=== PATIENT | female | born 1995 | race Caucasian/White ===

== ENCOUNTER → 2023-04-13 06:31 | Day surgery (SDC) | payer OTHER, SELFPAY | LOC: GI 06:31 | PROVIDERS: ATTENDING PHYSICIAN Internal Medicine Gastroenterology; FAMILY PHYSICIAN Emergency Medicine | DX: K62.5 Hemorrhage of anus and rectum (principal); R19.4 Change in bowel habit; K64.8 Other hemorrhoids | CPT/HCPCS: 45380; 88305 ==

== ENCOUNTER 2023-10-21 18:08 | Emergency (ER) | payer OTHER, SELFPAY ==
[2023-10-21 18:14] VITALS: BP 151/92
--- NOTE | 2023-10-21 19:03 | ED.GENMED ---
History of Present Illness
General
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
Source: patient
Exam Limitations: none
Time Seen by Provider: 10/21/23 18:25
History of Present Illness
History of Present Illness:
28-year-old female complaining of left flank pain that started yesterday. Some mild burning with urination. No frequency. No fever or chills. 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 Today about 2 to 3 hours prior to coming to the ER
she noticed a mass sticking out of her vagina. She was concerned it might be a prolapse. She has some vaginal bleeding. However her menses is close to being due. She denies .
Past History
Past History
ED Past Medical History: Other (Migraines)
ED Past Surgical History: Other (Nephrectomy)
Social History
Tobacco: Non-smoker
Alcohol: None
Drug: None
Personal: Single
Living: with family
Employment: Employed
Review of Systems
Review of Systems
All Other Systems: Not applicable
ABD/GI: Reports no symptoms
Phy Exam
Physical Exam
Physical Exam:
GENERAL: Alert and oriented in no apparent distress
EYE: Orbits normal.
NECK: Supple
CARDIAC: Regular rate and rhythm without any obvious murmurs.
LUNGS: Clear breath sounds,normal
ABDOMEN: Soft, without focal tenderness or distention
: Mild blood in the vaginal vault. No obvious masses. No obvious prolapse. Cervix is high visualized and appears normal. No abscess. No cervical motion tenderness. No masses palpated on manual exam.
NEUROLOGICAL: Alert and oriented , grossly non-focal
SKIN: Warm and dry
PSYCH: Normal and appropriate interaction.
Course
Orders/Labs/Results
Orders:
Orders
10/21/23 18:37
CT Abd/pel Without Iv Or Oral Urgent
Comment:
Reason For Exam: Left flank pain. 1 kidney
Test Result ONCE
10/21/23 18:38
IV Insert/Care/Rem.- Treatment PRN
10/21/23 18:46
0.9% Sodium Chloride 1000 ml [Nss] 1,000 ml IV BOLUS
US Pelvis Only (non-obstetric) Urgent
Comment:
Reason For Exam: Pelvic pain. Possible uterine prolapse
10/21/23 18:58
Complete Blood Count/With Diff Urgent
Comprehensive Metabolic Panel Urgent
HCG, Serum Qualitative Screen Urgent
Urinalysis Reflex To Culture Urgent
Date Specimen was Collected: 10/21/23
Time Specimen was Collected: 18:43
Urine Microscopic Reflex Cult Urgent
10/21/23 23:12
Chlamydia/GC by PCR Urgent
ROGERIO Source: Endo-Cervical
Specimen Description:
Source:: ENDOCERVICAL
Date Specimen was Collected: 10/21/23
Time Specimen was Collected: 23:14
10/21/23 23:22
CefTRIAXone [Rocephin] 500 mg IV NOW STA
Doxycycline [Vibramycin] 100 mg PO NOW STA
Abnormal Lab Results
10/21/23
18:58
MCH 31.6 H pg
(27.0-31.0)
Ur Occult Blood Reflex 3+ A
(Negative)
10/21/23 18:58
10/21/23 18:58
Vital Signs
Initial and Last Documented VS:
Initial Vital Signs
Temp Pulse Resp BP Pulse Ox
99.6 F 103 18 151/92 100
10/21/23 18:14 10/21/23 18:14 10/21/23 18:14 10/21/23 18:14 10/21/23 18:14
Last Documented Vital Signs
Temp Pulse Resp BP Pulse Ox
99.6 F 66 18 125/79 100
10/21/23 18:14 10/21/23 22:16 10/21/23 22:16 10/21/23 22:16 10/21/23 22:16
MDM/Problems Addressed
Differential Diagnosis Includes:
Patient's initial description of her vaginal issue sounded like a possible prolapse although clinically I cannot find 1. Anatomically her exam is unremarkable. We will get an ultrasound for completeness. As for the left flank pain she does have 1
kidney. Would want to rule out a obstructing stone. Workup in progress.
*Pulse Oximetry
Patient hypoxic: no
*Critical Care Note
Total Time (30-74mins, 75-104mins- exclusive of procedures): Not Applicable
Update Note
Update Note:
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 Likely vaginal cyst.. No obvious explanation for pain. No obvious infectious issue although with some cervical motion tenderness patient is covered with Rocephin and Doxy. Will follow-up with DEHYDRATION PLANT OPERATOR.
ED Attending Note
-
Portions of this chart may have been created with voice recognition software.� Occasional wrong word or��sound alike� substitutions may have occurred due to the inherent limitations of voice recognition software.
Discharge Plan
Departure
Patient Disposition: Home (Routine Discharge)
Date of Disposition: 10/21/23
Time of Disposition: 23:23
Patient with high blood pressure during this ER visit?: No
Discharge Problem:
Likely vaginal cyst, Dysuria/flank pain
Instructions: Dysuria, Adult (DC), Flank Pain (DC), BLOOD PRESSURE
Prescriptions:
New
doxycycline hyclate 100 mg capsule
100 mg PO BID 7 Days Qty: 14 0RF
No Action
pseudoephedrine HCl [Sudafed] 30 mg tablet
30 mg PO ONCE PRN (Reason: nasal congestion) Qty: 10 0RF
fluticasone propionate [Flonase Allergy Relief] 50 mcg/actuation spray,suspension
1 spray intranasal DAILY Qty: 16 0RF
Referrals:
Aixa Mi MD [Family Provider] -
Sylwia Jerome DO [Active] - Follow up in 5-7 days
Activity Restrictions/Additional Instructions:
Antibiotics as directed
Follow-up with the DEHYDRATION PLANT OPERATOR doctor
Return sooner with increased pain fever or any other concerning symptoms
Interventions
Interventions:
*Risk Screen - Suicide Last Done: 10/21/23 18:14
*General Assessment Last Done: 10/21/23 18:14
*Neglect/Abuse Screening Last Done: 10/21/23 18:14
ED-Female Genitourinary Assessment Last Done: 10/21/23 19:00
Discharge Date and Time
Print Language: LAO
[2023-10-21 19:07] LABS: % Basophils 0.4 % (0-2); % Eosinophils 0.9 % (0-6); % Immature Granulocytes 0.1 % (0-0.5); % Lymphocytes 44.2 % (20.5-51.1); % Monocytes 7.4 % (1.7-9.3); Absolute Eosinophils 0.1 10^3/uL (0-0.7); Absolute Lymphocytes 3.4 10^3/uL (1.2-3.4); Absolute Monocytes 0.6 10^3/uL (0.1-0.6); Absolute Neutrophils 3.7 10^3/uL (1.4-6.5); Hematocrit 40.6 % (37.0-47.0); Hemoglobin 13.6 g/dL (12.0-16.0); Mean Corp Hgb Conc. 33.5 g/dL (33.0-37.0); Mean Corpuscular Hgb 31.6 pg (27.0-31.0); Mean Corpuscular Volume 94.2 fL (81.0-99.0); Mean Platelet Volume 10.4 fL (7.4-10.4); Nucleated Red Blood Cells % 0 %; Platelet Count 235 10^3/uL (130-400); Red Blood Cell Count 4.31 10^6/uL (4.20-5.40); Red Cell Dist. Width 11.9 % (11.5-14.5); White Blood Cell Count 7.8 10^3/uL (4.8-10.8)
[2023-10-21 19:08] LABS: Urine Albumin Negative (Neg - Trace); Urine Bilirubin Negative (Negative); Urine Character Clear (Clear); Urine Color Yellow; Urine Glucose Negative (Negative); Urine Ketone Negative (Negative); Urine Leukocyte Negative (Negative); Urine Nitrite Negative (Negative); Urine Occult Blood 3+ (Negative); Urine Urobilinogen Negative (Neg - 1+)
[2023-10-21] MEDS: NSS 1000 IV (19:08)
[2023-10-21 19:20] LABS: Urine Red Blood Cell 0-2 /HPF (0-2); Urine White Cell None Seen /HPF (0-5)
[2023-10-21 19:23] LABS: HCG, Serum Qualitative Screen Negative
[2023-10-21 19:25] LABS: ALT (SGPT) 12 U/L (0-35); AST (SGOT) 23 U/L (14-36); Albumin 4.8 g/dl (3.5-5.0); Alkaline Phosphatase 73 U/L (38-126); Blood Urea Nitrogen 16 mg/dl (7-17); Calcium 9.7 mg/dl (8.4-10.2); Carbon Dioxide 27 mmol/L (22-30); Chloride 100 mmol/L (98-107); Glucose 98 mg/dl (70-99); Potassium 3.8 mmol/L (3.5-5.1); Sodium 140 mmol/L (135-145); Total Bilirubin 0.6 mg/dl (0.2-1.3); Total Protein 7.5 g/dl (6.3-8.2); eGFR > 60.00
[2023-10-21 22:16] VITALS: BP 125/79
[2023-10-21] MEDS: ROCEPHIN 500 MG IV (23:29)
[2023-10-21] MEDS: VIBRAMYCIN 100 MG PO (23:29)
--- NOTE | 2023-10-22 00:30 | CON.MD ---
Consultation - Medical
-
28 yo female with LMP now presents to ER with complaint of left sided abdominal side pain that radiated toward groin region. She describes this as mild. Reports today started with burning with urination but also some low pelvic pain. Denies
fever, chills, vaginal discharge, diarrhea, constipation or abnormal uterine bleeding. She reports feelign like something was protruding from her vagina. Last time of intercourse was a few days ago which was not painful. Denies any change in sexual
partner.
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
PSH: nephrectomy, wisdom teeth
ALL: NKDA
Meds: none
OBHx: miscarriage between 11-12 wks and 14 wks
Gynhx:denies hx of STI, PID. Completed gardisil series
Sochx: neg T/E/D
Famhx: mother and brother -HTN
ROS: does not add
PE: VSS afeb Temp 99.6 125/79
back: no CVAT
Abd: soft ND mild vague tenderness with palpation but no guarding, rebound rigidity
Spec exam: cervix grossly normal, some menstrual blood in vault. Vaginal cyst located anteriorly approximately 3-4 cm from vaginal opening. It is approx 2-3cm but is compressible and nontender to touch. No abnormal appearing vaginal discharge.
Cervix is somewhat tender, mild uterine tenderness with exam -though patient seems anxious with exam also. No adnexal fullness or tenderness.
Labs reviewed WBC 7.8 hgb 13.6 plt 235
Pelvic US uterus retroverted 8.4 x 4.0 x 3.5 cm with endometrial stripe 5.4 mm. ovaries normal appearance.
CT pelvic organs unremarkable uterus and ovaries.
urinalysis showed blood otherwise neg.
A/P: Vaginal wall cyst- nontender. May be addressed as outpt. Option for expectant mgmt or excision.
mild cervical tenderness ? cervicitis. GC/CT cultures collected. Rec empiric treatment with rocephin 500mg and doxycycline 100mg bid x 7 days while awaiting cultures. No obvious cause for pelvic pain identified so recommend treating for cervicitis
while awaiting cultures. Stable from respiratory therapy aide standpoint for nc home. Reviewed with Dr. Hogue. Reviewed with pt and partner. Advised her to return if any fever, chills, worsening symptoms.
time spent face to face, consulting with ER, review reports, documentation on day of visit 60 min.
== END 2023-10-21 23:36 | disposition home or self-care (01) ==
LOC: EMR 18:08
PROVIDERS: EMERGENCY PHYSICIAN Emergency Medicine; FAMILY PHYSICIAN Emergency Medicine
DX: R30.0 Dysuria (principal); R10.9 Unspecified abdominal pain; N93.9 Abnormal uterine and vaginal bleeding, unspecified; H81.09 Meniere's disease, unspecified ear; Z82.49 Family history of ischemic heart disease and other diseases of the circulatory system; Z90.5 Acquired absence of kidney
CPT/HCPCS: 99284; 96374; 96360; 74176; 76856; 80053; 81003; 81015; 84703; 85025; 87491; 87591